=== PATIENT | male | born 2005 | race Asian ===

== ENCOUNTER 2024-02-19 01:20 | Emergency (ER) | payer OTHER ==
[~2024-02-19] VITALS: Ht 172.7 cm; Wt 68.0 kg
[2024-02-19 01:32] VITALS: BP 143/74; PULSE 88; RESP 16; TEMP 98.1; O2SAT 96
[2024-02-19] MEDS ORDERED: BACITRACIN OINT 500 UNITS/GM PKT TP ONE (03:52)
[2024-02-19 04:00] VITALS: BP 143/74; PULSE 88; RESP 16; TEMP 98.1; O2SAT 96
[2024-02-19] MEDS: LIDOCAINE 2% 1000 MG/50 ML VIAL INJ ONE (04:05)
== END 2024-02-19 03:59 | disposition home or self-care (01) ==
LOC: MED 01:20
DX: S91.112A Laceration without foreign body of left great toe without damage to nail, initial encounter (principal); Z79.899 Other long term (current) drug therapy; X58.XXXA Exposure to other specified factors, initial encounter; Y93.89 Activity, other specified; Y92.89 Other specified places as the place of occurrence of the external cause; Y99.8 Other external cause status
CPT/HCPCS: 12001; 73610; 73630; 99284; J2001